=== PATIENT | male | born 1985 | race Caucasian/White ===

== ENCOUNTER 2022-07-07 10:02 | Emergency (ER) | payer OTHER ==
[2022-07-07] MEDS ORDERED: Ketorolac Tromethamine 30 MG/ML VIAL ONE (11:38)
[2022-07-07] MEDS ORDERED: Metoclopramide HCl 10 MG/2 ML VIAL ONE (11:38)
== END 2022-07-07 13:23 | disposition home or self-care (01) ==
LOC: ERS 10:02
DX: R51.9 Headache, unspecified (principal); Z87.891 Personal history of nicotine dependence
CPT/HCPCS: 96365; 96375; J1885; J2765